=== PATIENT | female | born 1940 | race Two or more races ===

== ENCOUNTER → 2024-07-29 | Emergency (ER) | payer OTHER ==
[~2024-07-29] VITALS: Ht 149.9 cm; Wt 57.2 kg
[~2024-07-29] MED LIST: ACETAMINOPHEN 500 MG GEL..CAP PO ONE; AMLODIPINE-OLM1 EAC2 PO; GUAIFENESIN 200 MG/10 ML BLIST.PACK PO ONE; LISINOPRIL40 MG PO; METFORMIN HCL500 M3 PO; SYNTHROID50 MCG PO; levoFLOXacin 500 MG TABLET PO ONE
[2024-07-29 09:37] LABS: URINE APPEARANCE Cloudy; URINE BILIRRUBIN Negative (NEGATIVE); URINE BLOOD Negative; URINE COLOR Yellow; URINE GLUCOSE Negative (NEGATIVE); URINE KETONE Trace (NEGATIVE); URINE LEUKOCYTE Small; URINE NITRATE Negative; URINE PROTEIN 30 (NEGATIVE); URINE UROBILINOGEN 0.2 E.U./dl
[2024-07-29 09:39] LABS: URINE BACTERIA 1529.9 uL (0.0-1933); URINE CAST 6.62 uL (0.0-1.40); URINE EPITHELIAL CELLS 111.7 uL (0.0-38.8); URINE RBC 15.9 uL (0.0-20.8)
[2024-07-29 09:46] LABS: HEMATOCRIT 30.5 % (36.0-45.00); HEMOGLOBIN 10.4 g/dL (12.0-15.00); MEAN CELL VOLUME 82.1 fL (80.00-100.00); MEAN CORPUSCULAR HEMOGLOBIN 28.1 pg (27.00-32.0); MEAN CORPUSCULAR HGB CONC 34.2 g/dl (32.0-36.0); PLATELET COUNT 452 K/uL (150-450); RED BLOOD COUNT 3.72 M/uL (4.00-6.00); RED CELL DISTRIBUTION WIDTH 13.8 % (11.5-14.5)
[2024-07-29 09:56] LABS: COVID-19 AG NEGATIVE (NEGATIVE); INFLUENZA A AG NEGATIVE (NEGATIVE)
[2024-07-29 10:06] LABS: CALCIUM 8.6 mg/dL (8.5-10.1); CREATININE SERUM 0.94 mg/dL (0.55-1.02); GFR 56.46; POTASSIUM 4.17 mEq/L (3.5-5.1)
[2024-07-29 13:03] VITALS: BP 150/70; O2SAT 95
== END | disposition home or self-care (01) ==
LOC: ER 06:39
PROVIDERS: General Practice
DX: R50.9 Fever, unspecified (principal); I10 Essential (primary) hypertension; E03.8 Other specified hypothyroidism; E11.9 Type 2 diabetes mellitus without complications; Z79.84 Long term (current) use of oral hypoglycemic drugs; I25.2 Old myocardial infarction